=== PATIENT | female | born 1970 | race Caucasian/White ===

== ENCOUNTER 2016-06-12 05:59 | Day surgery (SDC) | payer OTHER ==
[2016-06-11 11:24] VITALS: BMI 32.0
[2016-06-12] MEDS ORDERED: LIDOCAINE HCL 2% 100 MG/5 ML DISP.SYRIN ONE (06:54)
[2016-06-12] MEDS ORDERED: PROPOFOL 20 ML ONE ×2 (06:54→06:58)
[2016-06-12] MEDS ORDERED: ROCURONIUM BROMIDE 50 MG/5 ML VIAL ONE (06:54)
[2016-06-12] MEDS ORDERED: SUCCINYLCHOLINE CHLORIDE 200 MG/10 ML VIAL ONE ×2 (06:55→07:02)
[2016-06-12] MEDS ORDERED: MIDAZOLAM HCL 2 MG/2 ML SINGLE DOSE VIAL ONE (07:02)
[2016-06-12] MEDS ORDERED: LIDOCAINE HCL 2% (20ML MULTI-DOSE VIAL) NR ONE (07:11)
[2016-06-12] MEDS ORDERED: KETOROLAC TROMETHAMINE 30 MG/1 ML VIAL ONE (07:37)
[2016-06-12 08:33] VITALS: BP 115/65; PULSE 66; TEMP 98.1
[2016-06-12] MEDS ORDERED: oxyCODONE HCL 5 MG TABLET PO PRN (09:06)
[2016-06-12] MEDS ORDERED: ONDANSETRON 4 MG/2 ML VIAL IVPUSH PRN (09:06)
[2016-06-12] MEDS ORDERED: LACTATED RINGERS SOLUTION 1,000 ML IV SCH (09:15)
--- NOTE | 2016-06-13 09:50 | OP ---
DATE OF OPERATION: 06/12/2016 PREOPERATIVE DIAGNOSIS: Right carpal tunnel syndrome. POSTOPERATIVE DIAGNOSIS: Right carpal tunnel syndrome. OPERATIVE PROCEDURE: Right carpal tunnel release. SURGEON: Roni Stephen MD ANESTHESIA: Local with sedation. COMPLICATIONS: None. ESTIMATED BLOOD LOSS: Minimal. INDICATIONS FOR PROCEDURE: The patient is a 46-year-old female with the above findings, indicated for operative treatment. The risks, benefits, and alternatives were discussed with the patient at length, and proper informed consent was obtained. PROCEDURE: After proper identification of the patient and the correct operative site, the patient was brought to the operating room and placed on the table with prominences well padded. Sedation was given by the anesthesiologist, local anesthesia was given 2% lidocaine. Right upper extremity was prepped and draped in the usual sterile fashion. Well-padded tourniquet was placed with a sterile prep, Esmarch bandage to exsanguinate the right upper extremity. Tourniquet was inflated to 250 mmHg. A longitudinal incision was made over the proximal aspect of the palm. Incision was taken sharply through the skin with blunt and sharp dissection through subcutaneous tissues. Palmar fascia was divided longitudinally. The transverse carpal ligament was divided longitudinally. Distal 4 cm of antebrachial fascia was divided longitudinally. This was all done under direct visualization with loupe magnification. This provided complete release of the median nerve at the wrist. Wound was irrigated with copious amounts of normal saline and repaired with 5-0 nylon suture. Sterile dressings were applied. The patient was reversed from anesthesia and brought to the recovery room in stable condition. She tolerated the procedure well. Jose L SALTER/[id number]
== END 2016-06-12 08:57 | disposition home or self-care (01) ==
LOC: FASU 05:59
PROVIDERS: ATTEND Orthopaedic Surgery Hand Surgery
PROC: 01N50ZZ Release Median Nerve, Open Approach (ICD-10-PCS; principal; 2016-06-12 07:48)
DX: G56.01 Carpal tunnel syndrome, right upper limb (principal)
CPT/HCPCS: 84703

== ENCOUNTER 2020-06-28 04:22 | Day surgery (SDC) | payer OTHER ==
[2020-06-26 13:27] VITALS: BMI 32.9
[2020-06-28] MEDS ORDERED: ROPIVACAINE HCL 0.5% 30ML VIAL ONE (09:40)
[2020-06-28] MEDS ORDERED: MIDAZOLAM HCL 2 MG/2 ML SINGLE DOSE VIAL ONE ×3 (09:47→11:36)
[2020-06-28] MEDS ORDERED: ONDANSETRON 4 MG/2 ML VIAL IVPUSH PRN (11:11)
[2020-06-28] MEDS ORDERED: oxyCODONE HCL 5 MG TABLET PO PRN (11:11)
[2020-06-28] MEDS ORDERED: PROPOFOL 20 ML ONE (11:13)
[2020-06-28] MEDS ORDERED: LACTATED RINGERS SOLUTION 1,000 ML IV SCH (11:15)
[2020-06-28] MEDS ORDERED: ceFAZolin 2 GRAM PREMIX BAG IVPB ONE (11:30)
[2020-06-28] MEDS ORDERED: ceFAZolin SODIUM 1 GM VIAL ONE ×2 (11:33→13:57)
[2020-06-28] MEDS ORDERED: LIDOCAINE 1%/EPI 1:100000 (50 ML MULTI DOSE VIAL) ONE (12:02)
[2020-06-28] MEDS ORDERED: CEFAZOLIN 1 GM in DEXTROSE 5%-WATER - 50 ML IVPB ONE (15:00)
[2020-06-28] MEDS ORDERED: ONDANSETRON *ODT* 4 MG TABLET ONE (15:33)
[2020-06-28] MEDS ORDERED: ONDANSETRON *ODT* 4 MG TABLET SL ONE (15:35)
[2020-06-28 16:21] VITALS: BP 119/68; PULSE 72; TEMP 97.9
== END 2020-06-28 16:00 | disposition home or self-care (01) ==
LOC: JASU-SURG 04:22
PROVIDERS: ATTEND Orthopaedic Surgery
PROC: 0RNK4ZZ Release Left Shoulder Joint, Percutaneous Endoscopic Approach (ICD-10-PCS; principal; 2020-06-28 10:30)
DX: M75.42 Impingement syndrome of left shoulder (principal); M75.52 Bursitis of left shoulder
CPT/HCPCS: 81025; 94760; Q0162